=== PATIENT | male | born 1955 | race Caucasian/White ===

== ENCOUNTER 2018-03-04 08:36 | Day surgery (SDC) | payer BC ==
[~2018-03-04 08:36] MED LIST: Buffered Lidocaine 0.9% SYRIN* 5 ML/SYR SYRINGE INTRADERM ONE; Famotidine IV* 10 MG/ML 2 ML (20 mg) IV ONE; Lactated Ringers 1000 ML Bag* 1,000 ML IV SCH
[2018-03-04] MEDS ORDERED: Midazolam* 1 MG/ML 5 ML VIAL (5 MG) ONE (08:58)
[2018-03-04] MEDS ORDERED: fentaNYL* 50 MCG/ML 2 ML VIAL (100 MCG VIAL) ONE (08:58)
[2018-03-04] MEDS ORDERED: Clindamycin 900 MG/D5W BAG(*) 0 MG/0 ML BAG IVPB ONE (09:12)
[2018-03-04] MEDS ORDERED: Famotidine IV* 10 MG/ML 2 ML (20 mg) ONE (09:12)
[2018-03-04] MEDS ORDERED: Lidocaine 1%* 5 ML VIAL ONE (09:41)
[2018-03-04] MEDS ORDERED: ROPIVACAINE 5 MG/ML 30 ML BTL (0.5%) ONE (09:42)
[2018-03-04] MEDS ORDERED: ceFAZolin 2 GM PREMIX in ORs 2 GM/50 ML BAG IVPB ONE (10:26)
[2018-03-04] MEDS ORDERED: ceFAZolin 1 GM ADVAN(*) 1 GM ADDV.VIAL IVPB ONE (10:26)
[2018-03-04] MEDS ORDERED: EPINEPHRINE 1 MG/ML 1 ML VIAL ONE (10:42)
[2018-03-04] MEDS ORDERED: Bupivacaine 0.25% W/EPI* 10 ML SDV ONE (10:42)
[2018-03-04] MEDS ORDERED: oxyCODONE TAB* 5 MG TAB PO PRN (11:02)
[2018-03-04] MEDS ORDERED: HYDROmorphone INJ1* 1 MG/ML SYRINGE IV PRN (11:02)
[2018-03-04] MEDS ORDERED: DiMENhydriNATE IV* 50 MG/ML VIAL IV PUSH PRN (11:02)
[2018-03-04] MEDS ORDERED: Acetaminophen TAB* 325 MG PO PRN (11:02)
[2018-03-04] MEDS ORDERED: Naloxone* 0.4 MG/ML 1 ML VIAL IV PRN (11:02)
[2018-03-04] MEDS ORDERED: Dexamethasone IV* 4 MG/ML 1 ML (4 MG) ONE (11:36)
[2018-03-04] MEDS ORDERED: KETAMINE HCL* 50 MG/ML 10 ML VIAL ONE (11:36)
[2018-03-04] MEDS ORDERED: Lidocaine 2% PF * 5 ML VIAL ONE (11:36)
[2018-03-04] MEDS ORDERED: Propofol* 10 MG/ML 20 ML BTL ONE (11:36)
[2018-03-04] MEDS ORDERED: Ondansetron INJ* 2 MG/ML VIAL ONE (11:36)
[2018-03-04] MEDS ORDERED: Ketorolac INJ* 30 MG/ML 1 ML VIAL ONE (11:36)
[2018-03-04] MEDS ORDERED: HYDROmorphone INJ1* 1 MG/ML SYRINGE ONE (13:56)
[2018-03-04 15:50] VITALS: BP 125/86
--- NOTE | 2018-03-04 23:14 | OP ---
DATE OF OPERATION: 03/04/18 - [facility] DATE OF : 59 SURGEON: Hi Buchanan MD INTERPRETER DEAF: JT Miles ANESTHESIA: Regional and general. PRE-OP DIAGNOSIS: Right shoulder massive chronic rotator cuff tear. POST-OP DIAGNOSIS: Right shoulder massive chronic rotator cuff tear. OPERATIVE PROCEDURE: Right shoulder arthroscopy, decompression, debridement, and superior capsular reconstruction. ESTIMATED BLOOD LOSS: 40 cc. COMPLICATIONS: None. INDICATION: Mr. March is a 63-year-old male who, this summer, had sustained an injury to his right shoulder. It took a while, but he did recall previous troubles with the shoulder but initially he thought that shoulder always had been doing well. He had significant loss of strength as well as active motion. I discussed with him if he had a rotator cuff tear, and an MRI did confirm this as well. His rotator cuff also had been retracted approximately 5 cm and could be seen sitting on top of the level of the glenoid. I discussed with him that a regular rotator cuff repair would not be possible. We would nonetheless still try, but with the rotator cuff in this position, a superior capsular reconstruction is something that cannot be done that can help with pain and many times prevent the shoulder from progressing to a Toole shoulder. He absolutely did not want to end up with a [place] shoulder as that would be a reverse total shoulder arthroplasty to fix in, was very willing to try this to get the shoulder to feel better. Risks of surgery such as infection, scar formation, stiffness, continued pain as well as failure of the reconstruction to heal resulting in him being in the exact same situation that he is now were discussed. He had been declared medically optimized and wished to proceed. DESCRIPTION OF PROCEDURE: The patient had a block placed in the holding area and then was brought back to the OR. LMA was then placed. He was then sat up in the beach chair position. Care was taken to make sure that his left elbow was nice and free and that a cubital tunnel was clear. Head rest was also carefully adjusted so that his ears were nice and free. Right shoulder area was prepped and then draped. Anca Owen was present for the entirety of the case and the case could not have been done without assistance. Once the shoulder area was prepped, it was then draped and the spider was also set up. Portal sites were preinjected using 0.25% Marcaine with epinephrine. A standard posterior portal was made first using an 11- blade. Blunt trocar and the sheath was easily introduced into the shoulder and a camera was introduced into the sheath. Shoulder was allowed to insufflate and pulling back, glenohumeral joint was nicely visualized. It could be seen where the biceps tendon had already torn off and there was frayed and damaged labrum at the superior portion of the glenoid. Under direct vision, using an outside-in- technique, anterior portal was established and probe was introduced. Remainder of the labrum was firmly attached to the glenoid and shaver was introduced to clean up the torn and frayed edge of the old biceps anchor. Coming down, additional frayed labrum was gently debrided using the shaver and coming down to the pouch , no loose body was seen but there was quite a bit of synovitis. This was gently debrided with the shaver. Coming back upwards, edge of rotator cuff tear was again gently debrided and lateral portal was then made. This then allowed for a better debridement of the edge of the torn rotator cuff. Coming around, the greater tuberosity could be seen where he had a complete synovial lining and how this had been going on for quite some time. Shaver was also used to debride the greater tuberosity where I wanted to bring his rotator cuff back to. Additional scar tissue was taken out from the top and bottom side of the rotator cuff, and I could deliver about a centimeter or so. Spatula was then used to free up more of the rotator cuff and I could get about 2 cm of motion and a little bit of balance. I could only just get passed, however, that very top side of the humeral head. Decision was made to use the GraftJacket and this was opened and allowed to soak. Incision was made expanding that lateral portal to about a total of 3 cm. Incision was carried down through the skin and subcutaneous fat. Blunt dissection was carried out and deltoid fascia was easily found. Fascia was sharply incised and again just using blunt dissection, I was able to come down and was right down on top of greater tuberosity. Rick retractor was then placed and nice exposure was obtained. With arthroscopic assistance, Expressew was used to pass 0 Ethibond sutures through the remnant of the rotator cuff. With each one, I pulled until I could rock him so that I knew I had a good bite in the tissue. A few pulled out this way, but the remaining 4 had a wonderful bite. By this time, GraftJacket had nicely rehydrated and from the width of the rotator cuff piece, it appeared that an almost 3 cm wide piece would fit nicely. GraftJacket was cut and the Ethibond sutures were then passed through the GraftJacket. Great care was taken not to cross any of the stitches as well so that this would then sit flat up against the remnant of his rotator cuff. Similarly, smooth surface of the GraftJacket was placed downwards into the joint. Unfortunately, the fourth Ethibond that I was sewing broke, but the 3 I had had a wonderful bite and considering that this one was all the way posterior and that the bite I had was so good, that I did not go back to replace that fourth one. Three 3.5 anchors were then placed and FiberWire was brought up through the GraftJacket. GraftJacket was then measured and cut and FiberWire was then sewn down. Nice repair was obtained where he pulled over quite well and now had coverage of the humeral head. Wound was irrigated with more of the saline from the arthroscopy and the fascia of the deltoid was repaired using 2 loose 2-0 Vicryl sutures. Subcutaneous tissue was reapproximated with 2-0 Vicryl. Skin was closed using nylon. Anterior and posterior portals were also closed using nylon. Sterile dressing, Cryo/Cuff and shoulder immobilizer were all applied in the OR. The patient had the LMA removed in the OR and was stable on transfer to the recovery room. DISPOSITION/DISCHARGE SUMMARY: Mr. March is a 63-year-old male who just underwent a right shoulder superior capsular reconstruction. He tolerated the procedure well. There were no complications. He is currently rolling towards the recovery room. Once he wakes a bit more from his general anesthesia, can tolerate p.o., has his pain well controlled, and can void, he will be discharged home. Scripts for [place] will be e-scribed in. He has instructions to keep his dressing clean, dry, and intact for the next 3 days; but, after that , may take his dressing down, cover his sutures with Band-Aid, may shower, wash and get it wet, but should not soak it. I would like to see him in the office in approximately 10 days to remove his sutures and make sure he is doing well. We will continue him with motion restriction where he can move from the level of his shoulder to his knees, directly on front but he should not reach out into any kind of external rotation or try to reach up above shoulder level. He also should not lift anything heavier than a cup of coffee. If there are any problems or anything odd should occur, there are instructions to give the office a call. [id number]/[facility] #: [id number] [facility]
== END 2018-03-04 15:54 | disposition home or self-care (01) ==
LOC: OR 08:36
PROVIDERS: ATTEND Orthopaedic Surgery
DX: S46.011A Strain of muscle(s) and tendon(s) of the rotator cuff of right shoulder, initial encounter (principal); Z87.891 Personal history of nicotine dependence; G47.33 Obstructive sleep apnea (adult) (pediatric); I10 Essential (primary) hypertension; K21.9 Gastro-esophageal reflux disease without esophagitis; M51.36 Other intervertebral disc degeneration, lumbar region; Z88.0 Allergy status to penicillin; G89.18 Other acute postprocedural pain; M50.30 Other cervical disc degeneration, unspecified cervical region; W19.XXXA Unspecified fall, initial encounter; Y93.89 Activity, other specified; Y92.007 Garden or yard of unspecified non-institutional (private) residence as the place of occurrence of the external cause
CPT/HCPCS: C1713; C1768; J0690; J1100; J1170; J1885; J2250; J2405; J2704; J2795; J3010